=== PATIENT | female | born 1965 | race American Indian/Alaskan Native ===

== ENCOUNTER 2017-10-30 13:34 | Emergency (ER) | payer SELFPAY ==
[2017-10-30] MEDS ORDERED: NORVASC PO ONE (14:14)
[2017-10-30] MEDS ORDERED: TORADOL IV ONE (14:14)
[2017-10-30] MEDS ORDERED: BENADRYL IV ONE (14:14)
[2017-10-30] MEDS ORDERED: REGLAN IV ONE (14:14)
[2017-10-30 14:30] LABS: Basophils # (Auto) 0.1 K/mm3 (0.0-0.1); Basophils % (Auto) 0.7 % (0.0-1.8); Eosinophils # (Auto) 0.2 K/mm3 (0.0-0.4); Eosinophils % (Auto) 1.4 % (0.0-4.3); Hemoglobin 14.2 gm/dl (10.1-14.3); Lymphocytes # (Auto) 2.9 K/mm3 (1.2-5.4); Lymphocytes % (Auto) 21.5 % (13.4-35.0); Mean Corpuscular HGB Conc 33 % (30-34); Mean Corpuscular Hemoglobin 31 pg (28-32); Mean Corpuscular Volume 93 fl (79-97); Monocytes # (Auto) 0.9 K/mm3 (0.0-0.8); Monocytes % (Auto) 6.6 % (0.0-7.3); Red Blood Count 4.61 M/mm3 (3.65-5.03); Red Cell Distribution Width 13.2 % (13.2-15.2)
[2017-10-30 14:36] LABS: INR 0.95 (0.87-1.13)
[2017-10-30 14:39] LABS: BUN/Creatinine Ratio 12; Blood Urea Nitrogen 6 mg/dL (7-17); Calcium 8.5 mg/dL (8.4-10.2); Hemolysis Index 84
--- NOTE | 2017-10-30 14:44 | Cat Scan Report ---
CT HEAD WITHOUT CONTRAST: HISTORY: Headache, photo sensitivity. TECHNIQUE: Sequential 2.5mm CT images. COMPARISON: none. FINDINGS: Cerebral Parenchyma: Mild nonspecific hypoattenuation is identified in the white matter bilaterally. This probably represents mild chronic microvascular disease. The remaining brain parenchyma demonstrates normal attenuation. Normal elliott-white interface. Cerebellum: Within normal limits. Brainstem: Within normal limits. Ventricles: Normal. Sella: Normal. Extra-axial spaces: Normal. Basal Cisterns: Normal. Intracranial Hemorrhage: None. Midline Shift: None. Calvarium: Normal. Sinuses: Normal. Mastoid Air Cells: Normal. Visualized Orbits: Normal. IMPRESSION: Mild nonspecific chronic white matter changes. No acute intracranial process.
[2017-10-30 15:06] LABS: Platelet Count 180 K/mm3 (140-440)
--- NOTE | 2017-10-30 15:42 | Emergency Department Report ---
ED Headache HPI - General Chief Complaint: High BP Stated Complaint: HEADACHE Time Seen by Provider: 10/30/17 14:07 Source: patient Exam Limitations: no limitations - History of Present Illness Initial Comments: 52-year-old email past medical history hypertension and anemia versus hospital complaining of headache started last night. Headache started behind her eyes and occlusive bitemporal and forehead. Gradual onset. No blurred vision. Currently moderate to severe in intensity will photosensitivity. Pain is sharp, throbbing, aching and constant. Denies neck pain, recent head trauma, nausea, vomiting, focal weakness, focal numbness, or slurred speech. Denies previous hx of headaches. Patient states that symptoms started with with eye pain and erythema that then spread to the right eye by the morning with worsening headache. Blurred vision reported. Patient unable to tolerate any light at this time. Eyes tear with light exposure. Patient did not take her blood pressure medication today. Allergies/Adverse Reactions: Allergies No Known Allergies Allergy (Unverified 10/30/17 13:46) Home Medications: Ambulatory Orders Glycerin/Propylene Glycol [Artificial Tears Drops] 1 - 2 drop OP PRN PRN #1 bottle 10/30/17 HYDROcodone/APAP 5-325 [Williams 5/325] 1 each PO Q6HR PRN #20 tablet 10/30/17 Ibuprofen [Motrin] 600 mg PO Q8H PRN #30 tablet 10/30/17 Lisinopril [Zestril] 10 mg PO DAILY 10/30/17 amLODIPine [Norvasc] 5 mg PO DAILY #30 tab 10/30/17 ED Review of Systems ROS: Stated complaint: HEADACHE Other details as noted in HPI Comment: All other systems reviewed and negative ED Past Medical Hx - Past Medical History Previous Medical History?: Yes Hx Hypertension: Yes Additional medical history: ANEMIA - Surgical History Additional Surgical History: FIBRIODS REMOVED - Social History Smoking Status: Never Smoker Substance Use Type: None - Medications Home Medications: Home Medications Medication Instructions Recorded Confirmed Last Taken Type Glycerin/Propylene Glycol 1 - 2 drop OP PRN PRN #1 bottle 10/30/17 Unknown Rx [Artificial Tears Drops] HYDROcodone/APAP 5-325 [Williams 1 each PO Q6HR PRN #20 tablet 10/30/17 Unknown Rx 5/325] Ibuprofen [Motrin] 600 mg PO Q8H PRN #30 tablet 10/30/17 Unknown Rx Lisinopril [Zestril] 10 mg PO DAILY 10/30/17 10/30/17 Unknown History amLODIPine [Norvasc] 5 mg PO DAILY #30 tab 10/30/17 Unknown Rx ED Physical Exam - General Limitations: No Limitations - Other Other exam information: General: No limitations, patient is alert in no acute distress Head exam: Atraumatic, normocephalic Eyes exam: Initially patient cannot roll her eyes due to light sensitivity. After receiving medication was able to examine her eyes more thoroughly. Pupils equal and reactive to light. Bilateral dilated scleral vessels causing erythema. Patient does not wear corrective lenses. Her visual acuity bilaterally is 20/20, right eye 20/30, left eye 20/30. Eye pain further relieved with tetracaine. Right eye pressure 20 left eye pressure 19. Patient received phenylephrine drops to each eye with blanching affect. Dilated veins appeared to be superficial and suggestive of episcleritis. No bluish tinge to sclera or chemosis ENT: Moist mucous membrane, normal oropharynx Neck exam: Normal inspection, full range of motion, no meningismus nontender Respiratory exam: Clear to auscultation bilateral, no wheezes, rales, crackles Cardiovascular: Normal rate and rhythm, normal heart sounds Abdomen: Soft, nondistended, and nontender, with normal bowel sounds, no rebound, or guarding Extremity: Full range of motion normal inspection no deformity Back: Normal Inspection, full range of motion, no tenderness Neurologic: Alert, oriented x3, cranial nerves intact, no motor or sensory deficit Psychiatric: normal affect, normal mood Skin: Warm, dry, intact ED Course Vital Signs 10/30/17 10/30/17 10/30/17 11:31 12:06 12:15 Temperature Pulse Rate Respiratory Rate Blood Pressure 180/135 205/105 167/102 O2 Sat by Pulse Oximetry 10/30/17 10/30/17 10/30/17 12:30 12:45 13:03 Temperature Pulse Rate Respiratory Rate Blood Pressure 169/112 185/104 189/121 O2 Sat by Pulse Oximetry 10/30/17 10/30/17 10/30/17 13:15 13:39 13:40 Temperature Pulse Rate Respiratory Rate Blood Pressure 199/122 199/96 199/96 O2 Sat by Pulse 96 99 Oximetry 0310/30/17 10/30/17 13:48 13:50 14:00 Temperature 98.2 F Pulse Rate 83 Respiratory 18 Rate Blood Pressure 199/96 199/96 177/94 O2 Sat by Pulse 99 100 98 Oximetry 10/30/17 10/30/17 10/30/17 14:10 14:33 14:40 Temperature Pulse Rate Respiratory Rate Blood Pressure 177/94 178/90 178/90 O2 Sat by Pulse 100 99 100 Oximetry 10/30/17 10/30/17 10/30/17 14:46 14:50 15:00 Temperature Pulse Rate 74 Respiratory Rate Blood Pressure 178/90 178/90 178/108 O2 Sat by Pulse 100 99 Oximetry 10/30/17 10/30/17 10/30/17 15:10 15:20 15:30 Temperature Pulse Rate Respiratory Rate Blood Pressure 178/108 178/108 178/108 O2 Sat by Pulse 99 100 99 Oximetry 10/30/17 10/30/17 10/30/17 15:43 15:51 16:00 Temperature Pulse Rate Respiratory Rate Blood Pressure 162/96 178/108 159/94 O2 Sat by Pulse 93 99 99 Oximetry 10/30/17 10/30/17 10/30/17 16:11 16:21 16:34 Temperature 98.1 F Pulse Rate Respiratory Rate Blood Pressure 162/96 149/90 O2 Sat by Pulse 99 98 Oximetry ED Medical Decision Making - Lab Data Result diagrams: 10/30/17 14:03 10/30/17 14:03 Lab Results 10/30/17 10/30/17 10/30/17 Range/Units 14:03 14:03 14:03 WBC 13.4 H (4.5-11.0) K/mm3 RBC 4.61 (3.65-5.03) M/mm3 Hgb 14.2 (10.1-14.3) gm/dl Hct 43.0 H (30.3-42.9) % MCV 93 (79-97) fl MCH 31 (28-32) pg MCHC 33 (30-34) % RDW 13.2 (13.2-15.2) % Plt Count 180 (140-440) K/mm3 Lymph % (Auto) 21.5 (13.4-35.0) % Luce % (Auto) 6.6 (0.0-7.3) % Eos % (Auto) 1.4 (0.0-4.3) % Baso % (Auto) 0.7 (0.0-1.8) % Lymph # 2.9 (1.2-5.4) K/mm3 Luce # 0.9 H (0.0-0.8) K/mm3 Eos # 0.2 (0.0-0.4) K/mm3 Baso # 0.1 (0.0-0.1) K/mm3 Seg Neutrophils % 69.8 (40.0-70.0) % Seg Neutrophils # 9.3 H (1.8-7.7) K/mm3 PT 13.1 (12.2-14.9) Sec. INR 0.95 (0.87-1.13) Sodium 137 (137-145) mmol/L Potassium 3.9 (3.6-5.0) mmol/L Chloride 102.9 (98-107) mmol/L Carbon Dioxide 24 (22-30) mmol/L Anion Gap 14 mmol/L BUN 6 L (7-17) mg/dL Creatinine 0.5 L (0.7-1.2) mg/dL Estimated GFR > 60 ml/min BUN/Creatinine Ratio 12 % Glucose 89 (65-100) mg/dL Calcium 8.5 (8.4-10.2) mg/dL - Radiology Data Radiology results: report reviewed CT head: White matter changes no acute findings - Medical Decision Making Headache with bilateral eye pain and erythema Symptoms initially started gradually with eye pain then spread to the right with worsening headache. I suspect the patient has episcleritis. No signs of scleritis clinically pain relief with tetracaine, superficial vessels adama on exam, and visual acuity is normal. CT head unremarkable as well as labs. Patient will be treated symptomatically for pain and encouraged to follow with cash posting representative and neurology for further evaluation. Hypertension Patient states Lisinopril is giving her a chronic cough and her doctor was planning on changing her medication. I will start her on Norvasc 5 and advised her to follow with her primary care doctor - Differential Diagnosis conjunctivitis, scleritis, episcleritis, migraine, tension headache, ich Critical Care Time: No Critical care attestation.: If time is entered above; I have spent that time in minutes in the direct care of this critically ill patient, excluding procedure time. ED Disposition Clinical Impression: Episcleritis of both eyes, Headache, HTN (hypertension) Disposition: DC-01 TO HOME OR SELFCARE Is pt being admited?: No Does the pt Need Aspirin: No Condition: Stable Instructions: Hypertension (ED), Eye Pain (ED), Acute Headache (ED) Additional Instructions: You may use cold compresses or cold artificial tears to help with your eye discomfort. Take the pain medication as provided. It is very important that you follow up with an cash posting representative for further evaluation and to confirm diagnosis of suspected episcleritis. Please return if symptoms worsen as indicated by your discharge instructions Prescriptions: amLODIPine [Norvasc] 5 mg PO DAILY #30 tab Glycerin/Propylene Glycol [Artificial Tears Drops] 1 - 2 drop OP PRN PRN #1 bottle PRN Reason: Dry Eye(S) HYDROcodone/APAP 5-325 [Williams 5/325] 1 each PO Q6HR PRN #20 tablet PRN Reason: Pain Ibuprofen [Motrin] 600 mg PO Q8H PRN #30 tablet PRN Reason: Pain Referrals: PRIMARY CARE, [Primary Care Provider] - 3-5 Days RONDA DONALDSON MD [Staff Physician] - 2-3 Days (Crm Developer) AVIS MATA MD [Staff Physician] - 2-3 Days (Crm Developer) STAS MCLAUGHLIN MD [Staff Physician] - 2-3 Days (Crm Developer) Time of Disposition: 18:27
[2017-10-30] MEDS ORDERED: MORPHINE IV ONE ×2 (16:15)
[2017-10-30] MEDS ORDERED: TETRACAINE 0.5% OU ONE (16:50)
[2017-10-30] MEDS ORDERED: ZOFRAN ODT PO ONE (16:51)
[2017-10-30] MEDS ORDERED: AK-Dilate OD ONE (17:00)
[2017-10-30 19:00] VITALS: BP 172/88
== END 2017-10-30 19:08 | disposition home or self-care (01) ==
LOC: ED 13:34
DX: H15.103 Unspecified episcleritis, bilateral (principal); R51 Headache; I10 Essential (primary) hypertension; Z90.89 Acquired absence of other organs
CPT/HCPCS: 36415; 70450; 80048; 85025; 85610; 96374; 96375; 99284; J1200; J1885; J2270; J2765; Q0162